=== PATIENT | male | born 1955 | race Caucasian/White ===

== ENCOUNTER 2018-08-10 17:56 | Emergency (ER) | payer MEDICARE, OTHER ==
[~2018-08-10] VITALS: Wt 73.8 kg
[2018-08-10 18:04] VITALS: BP 165/89; PULSE 108; RESP 20
[2018-08-10] MEDS ORDERED: KETOROLAC 30 MG INJ IM STA (21:26)
[2018-08-10] MEDS ORDERED: TYL500 PO (23:22)
[2018-08-10] MEDS ORDERED: IBUP-1542 PO (23:23)
--- NOTE | 2018-08-11 02:38 | ERD ---
ER Documentation Chief Complaint Chief Complaint c/o low back pain, right leg pain, denies injury, no trauma HPI 63-year-old male presents for low back pain and right leg pain times 3 days. He has had low back pain about 2 months ago. He was told by his primary care physician that he has a slipped disc in his physical therapy. Patient's daughter states that the patient had physical therapy at home for 2 days however the physical therapy stopped. Low back pain noted to be 10 out of 10. Patient has Naprosyn at home but did not take it. No recent spinal procedures, no recent infection, no history of cancer. Denies loss of bowel or bladder function. ROS All systems reviewed and are negative except as per history of present illness. Medications Home Meds Active Scripts Ibuprofen* (Motrin*) 600 Mg Tab, 600 MG PO Q6H PRN for PAIN, #30 TAB Prov:GURPREET MAGANA DO 08/10/18 Acetaminophen* (Tylenol*) 500 Mg Tab, 500 MG PO Q4H PRN for MILD PAIN LEVEL 1-3, #30 TAB Prov:GURPREET MAGANA DO 08/10/18 Allergies Allergies: Coded Allergies: No Known Drug Allergies (Verified Allergy, Unknown, 08/10/18) PMhx/Soc Hx Cardiac Disorders: Yes (htn, dm, high cholesterol) Hx Alcohol Use: No Hx Substance Use: No Hx Tobacco Use: No Smoking Status: Never smoker Physical Exam Vitals Vital Signs Date Temp Pulse Resp B/P (MAP) Pulse Ox O2 O2 Flow FiO2 Time Delivery Rate 08/10/18 98.7 108 20 165/89 97 18:04 (114) Physical Exam Const: No acute distress Resp: Clear to auscultation bilaterally Cardio: Regular rate and rhythm, no murmurs, bilateral radial and dorsalis pedis pulses intact Abd: Soft, non tender, non distended. Normal bowel sounds Skin: No petechiae or rashes Back: Lumbar spine paravertebral muscle tenderness to palpation, no midline tenderness. Ext: No cyanosis, or edema Neur: Awake and alert, bilateral upper and lower extremity sensation intact Psych: Normal Mood and Affect Results 24 hrs Current Medications Medications Dose Sig/Alex Start Time Status Last (Trade) Ordered Route PRN Stop Time Admin Dose Reason Admin Ketorolac 30 mg ONCE STAT 08/10/18 DC 08/10/18 Tromethamine IM 21:26 08/10/18 21:37 (Toradol) 21:28 Procedures/MDM Medical Decision Making: Differential diagnosis includes but not limited to muscle strain, ligamentous sprain, epidural abscess, osteomyelitis, osteoarthritis, herniated disc, compression fracture, aortic aneurysm, kidney stone, pyelonephritis, pancreatitis. Patient appeared well on physical examination. Nontoxic appearing. Denies fever. No recent back procedures done, low suspicion for epidural abscess. No recent infection, there is low suspicion for osteomyelitis. Imaging: Lumbar x-ray showed 1. Mild to moderate spondylosis/degenerative enthesopathy at L5-S1. 2. 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 3. Moderate facet spondylosis at L5-S1 with suggestion of neural foraminal narrowing at this level. 4. No evidence of fracture. ED course: Patient was given Toradol. Symptoms improved with treatment. Prescription(s): Patient given prescription for Motrin, Tylenol. Patient advised not to take naproxen while taking motrin. Patient advised to follow up with PCP in 1-2 days. Patient advised to return to ED for new or worsening symptoms. Patient stable on discharge from the ED. Disclaimer: Inadvertent spelling and grammatical errors are likely due to EHR/dictation software use and do not reflect on the overall quality of patient care. Also, please note that the electronic time recorded on this note does not necessarily reflect the actual time of the patient encounter. Departure Diagnosis: Primary Impression: Back pain Condition: Fair Patient Instructions: Back Pain (Acute Or Chronic), Back Pain W/ Sciatica Additional Instructions: Llame al doctor CORIE y elizabeth pam MIGUEL PARA DENTRO DE 1-2 ESTEBAN.Dgale a la secretaria que nosotros le instruimos hacer esta miguel.Avise o llame si gerard condicin se empeora antes de la miguel. Regresa aqui si peor o no mejor. GURPREET MAGANA DO Aug 11, 2018 02:36
== END 2018-08-10 23:57 | disposition home or self-care (01) ==
LOC: FTE 17:56
DX: M54.5 Low back pain (principal); I10 Essential (primary) hypertension; E11.9 Type 2 diabetes mellitus without complications
CPT/HCPCS: 72100; 96372; 99284; J1885